=== PATIENT | male | born 1985 | race Caucasian/White ===

== ENCOUNTER 2017-01-21 15:36 | Emergency (ER) | payer MEDICAID ==
[~2017-01-21] VITALS: Ht 185.4 cm; Wt 158.0 kg
[2017-01-21 15:37] VITALS: Ht 185.4 cm; Wt 158.0 kg
[2017-01-21] MEDS ORDERED: CARB15DR50 BOTH EARS (19:05)
[2017-01-21] MEDS ORDERED: NAPR-688 PO (19:05)
--- NOTE | 2017-01-21 19:14 | ERD ---
ER Documentation Chief Complaint Date/Time DATE: 01/21/17 TIME: 19:09 Chief Complaint left ear pain x 3 days HPI This 31-year-old male presents for left ear pain for 3 days. Denies any fevers or chills. Denies any hearing loss. Denies discharge. No other symptoms. ROS All systems reviewed and are negative except as per history of present illness. Medications Home Meds Active Scripts Naproxen* (Naproxen*) 500 Mg Tablet, 500 MG PO BID Y for PAIN, #20 TAB Prov:XOCHILT ESQUIVEL DO 01/21/17 Carbamide Peroxide* (Debrox*) 6.5% - 15 Ml Drops, 10 DROP BOTH EARS BID, #1 BOTTLE Prov:XOCHILT ESQUIVEL DO 01/21/17 Allergies Allergies: Coded Allergies: No Known Allergy (Unverified , 01/21/17) PMhx/Soc Medical and Surgical Hx: pt denies Medical Hx, pt denies Surgical Hx Hx Alcohol Use: No Hx Substance Use: No Hx Tobacco Use: No Smoking Status: Never smoker Physical Exam Vitals Vital Signs Date Time Temp Pulse Resp B/P Pulse Ox O2 Delivery O2 Flow Rate FiO2 01/21/17 15:37 98.6 89 20 137/98 98 Physical Exam Const: [] No distress Head: Atraumatic Eyes: Normal Conjunctiva ENT: Normal External Ears, Nose and Mouth. Right tympanic membranes cerumen impaction, left tympanic membrane also with cerumen impaction O thin layer of cerumen right up against the eardrum. This appearance is consistent with Q-tip use. Procedures/MDM Patient with cerumen against tympanic membrane with the appearance of only seen with Q-tip use. Patient admits to using Q-tips frequently. Cerumen is pushed back on the point where the celiac and removed from the ear canal. Going to discharge him with Debrox eardrops as well as naproxen. Primary care follow-up in the next 2-3 days. Return precautions given. Told to never use Q-tips again on his ears. Departure Diagnosis: Primary Impression: Impacted cerumen of both ears Condition: Stable Patient Instructions: Cerumen Impaction, Home Care Referrals: COMMUNITY CLINICS YOU HAVE RECEIVED A MEDICAL SCREENING EXAM AND THE RESULTS INDICATE THAT YOU DO NOT HAVE A CONDITION THAT REQUIRES URGENT TREATMENT IN THE EMERGENCY DEPARTMENT. FURTHER EVALUATION AND TREATMENT OF YOUR CONDITION CAN WAIT UNTIL YOU ARE SEEN IN YOUR DOCTORS OFFICE WITHIN THE NEXT 1-2 DAYS. IT IS YOUR RESPONSIBILITY TO MAKE AN APPOINTMENT FOR FOLOW-UP CARE. IF YOU HAVE A PRIMARY DOCTOR --you should call your primary doctor and schedule an appointment IF YOU DO NOT HAVE A PRIMARY DOCTOR YOU CAN CALL OUR PHYSICIAN REFERRAL HOTLINE AT IF YOU CAN NOT AFFORD TO SEE A PHYSICIAN YOU CAN CHOSE FROM THE FOLLOWING [facility] CL[facility]ICS [facility] [address] [facility] [address] [facility] [facility] [address] [facility] [address] [facility] [address] [facility] [facility]. [address] Additional Instructions: Call your primary care doctor TOMORROW for an appointment during the next 2-3 days.See the doctor sooner or return here if your condition worsens before your appointment time. XOCHILT ESQUIVEL DO Jan 21, 2017 19:14
== END 2017-01-21 19:30 | disposition home or self-care (01) ==
LOC: FTE 15:36
DX: H61.23 Impacted cerumen, bilateral (principal)
CPT/HCPCS: 99283